=== PATIENT | male | born 1990 | race Caucasian/White ===

== ENCOUNTER 2017-10-09 11:08 | Inpatient (IN) | payer SELFPAY ==
[2017-10-09] VITALS (11 sets, daily range): BP systolic 106–141; BP diastolic 50–73
[~2017-10-09] VITALS: Ht 180.3 cm; Wt 59.6 kg
--- NOTE | ~2017-10-09 | O ---
[place], [place] OPERATIVE NOTE NAME: [facility] #: [id number] UNIT #: [id number] ROOM: 415 DOCTOR: ALFRED ALTMAN MD BIRTHDATE: [birth year] DOS: 10/09/2017 PREOPERATIVE DIAGNOSIS: Presumed acute appendicitis. POSTOPERATIVE DIAGNOSIS: Suspected inflammatory bowel disease. PROCEDURE: Diagnosed laparoscopic, exploratory laparotomy, ileocecectomy. SURGEON: Alfred Altman MD DIESEL TECHNICIAN: CORA. ANESTHESIA: General with endotracheal intubation. INDICATIONS: This is a 27-year-old gentleman who was admitted with right lower quadrant abdominal pain and a CAT scan that showed presumed perforated appendicitis. The patient was taken to the operating room for the above-mentioned procedure. The procedure and its complications were explained to the patient in detail preoperatively. Complications that were discussed included but were not limited to bleeding, infection, prolonged postoperative pain, damage to underlying vital structures, inadvertent injury to the surrounding vital structures, incisional hernia formation and he agreed to proceed. DESCRIPTION OF PROCEDURE: After identifying the patient, the patient was brought to the operating suite and laid in the supine position. After induction of general anesthesia, the parts were painted and draped in the usual sterile fashion and prior to this a Kelly catheter was inserted into the urinary bladder. A timeout procedure was called in the usual fashion. A subumbilical incision in the transverse fashion was made. The skin and the subcutaneous tissue were incised in the line of the incision. The fascia was incised vertically and 2 stay sutures were taken with the help of 0 Vicryl. A pneumoperitoneum was created after 12 mm Edna port was introduced into the peritoneal cavity. Under direct vision, a left lower quadrant incision of 10 mm and a suprapubic incision of 5 mm was made and appropriate size ports were introduced. The patient was placed in a Trendelenburg, right side up position and the cecum was identified. Posterior to the cecum, in the retrocecal position, there was found to be some severe inflammation, but the appendix could not be adequately visualized despite multiple attempts to manipulate the cecum laparoscopically. Therefore, a decision was now made to proceed with an exploratory laparotomy. The ports were removed and the pneumoperitoneum was decompressed. The umbilical and the suprapubic ports were connected together with the help of a knife and the fascia as well as the subcutaneous tissue was opened with the help of electrocautery. A self-retaining [place] retractor was placed. The cecum was again found to be extremely inflamed and also had significant amount of fleshy lymphadenopathy in the ileocecal region. A decision was made to proceed with ileocecectomy. A spot was identified in the distal ileum approximately 6 inches away from the ileocecal junction and this area was stapled with the help of linear stapler. Similarly, after adequate dissection of the cecum away from the retroperitoneum structures, similar [place], [place] OPERATIVE NOTE NAME: [facility] UNIT #: [id number] ROOM: [facility] DOCTOR: RAMON NORRIS,ALFRED BIRTHDATE: [birth year] stapling was performed of the region of the proximal cecum. With the help of the LigaSure device, the mesentery of the ileocecal region to be removed was incised. The vasculature was then ligated with the help of 0 Vicryl and the specimen was then sent for histopathological diagnosis. Hemostasis was achieved and thereafter with the help of linear and TA stapler, a stapled anastomosis between the terminal ileum and the cecum was performed. The stapled end was then reinforced with the help of 3-0 silk in an interrupted fashion. A stitch was also taken in the ____ with the help of 3-0 silk. The mesentery of the ileocecal region was then approximated with the help of 3-0 Vicryl in a running fashion. Copious amounts of saline was used for irrigation and after all the irrigation fluid was sucked away, hemostasis was confirmed again. At this point, the fascial defect was approximated with the help of looped PDS in a running fashion. The skin edges were infiltrated with local anesthesia (1% plain lidocaine) and approximated with the help of pepper. The left lower quadrant incision also was approximated with the help of pepper after local anesthesia was infiltrated. A dressing was placed. The patient was extubated uneventfully and brought back to the recovery room in stable fashion. There were no complications. Dr. Alfred Altman, the attending surgeon, was present throughout the operating case. Alfred Altman MD CM:OPRECORD:OPERATIVE NOTE [id number] ALFRED ALTMAN MD 10/09/[id number] interface
[~2017-10-09 11:08] MED LIST: CLARITIN10 MG PO; NKHM; ZITHROMAX Z PA250 MG PO; ZOFRAN ODT4 MG SL
[2017-10-09 11:51] LABS: BASO % 0.1 % (0.0-1.0); EOS % 0.1 % (1.0-4.0); HEMATOCRIT 36.5 % (42.0-52.0); HEMOGLOBIN 12.7 g/dl (14.0-18.0); LYMPH # 1.2 10*3/uL (1.3-4.4); LYMPH % 8.7 % (27.0-41.0); MEAN CELL VOLUME 89.5 fl (80.0-94.0); MEAN CORPUSCULAR HGB 31.1 pg (27.0-31.0); MEAN CORPUSCULAR HGB CONC 34.8 g/dl (33.0-37.0); MEAN PLATELET VOLUME 11.5 fl (9.6-12.3); MONO # 0.8 10*3/uL (0.1-1.0); MONO % 6.2 % (3.0-9.0); NEUT # 11.2 10*3/uL (2.3-7.9); NEUT % 84.5 % (47.0-73.0); PLATELET COUNT AUTOMATED 174 10*3/uL (130-400); RED BLOOD COUNT 4.08 10*6/uL (4.50-5.90); WHITE BLOOD COUNT 13.3 10*3/uL (4.8-10.8)
[2017-10-09 12:08] LABS: ALBUMIN 3.7 gm/dl (3.1-4.5); BUN 9 mg/dl (7-24); CHLORIDE 102 mmol/L (98-107); CREATININE 0.99 mg/dL (0.70-1.30); LIPASE 118 U/L (73-393); POTASSIUM 3.3 mmol/L (3.5-5.1); SGOT/AST 15 IU/L (3-35); SGPT/ALT 18 U/L (12-78); SODIUM 138 mmol/L (136-145); TOTAL PROTEIN 7.2 gm/dL (6.4-8.2)
[2017-10-09 12:09] LABS: ALKALINE PHOSPHATASE 77 U/L (45-117)
--- NOTE | 2017-10-09 12:27 | NUR ---
PT HAS BEEN ASKED SEVERAL TIMES BUT REMAINS UNABLE TO PROVIDE URINE SPECIMEN DESPITE ONGOING 1/2NSS INFUSING.
--- NOTE | 2017-10-09 12:30 | NUR ---
PAIN MUCH RELIEVED WITH TORADOL DOSING. SALINE HAS INFUSED. TAKEN TO CT NOW
[2017-10-09 12:53] LABS: BILIRUBIN NEGATIVE (NEGATIVE); BLOOD NEGATIVE (NEGATIVE); CLARITY SL CLOUDY (CLEAR); COLOR YELLOW (YELLOW); GLUCOSE NEGATIVE (NEGATIVE); KETONE TRACE (NEGATIVE); LEUKO ESTERASE NEGATIVE (NEGATIVE); NITRITE NEGATIVE (NEGATIVE); SPECIFIC GRAVITY 1.025 (1.005-1.030); UROBILINOGEN 0.2 E.U./dl (0.2-1.0)
[2017-10-09 13:06] LABS: BACTERIA TRACE; MUCOUS 2+
--- NOTE | 2017-10-09 14:00 | NUR ---
Time: 1399 A 27 year old MALE admitted to under services of AMARILIS RIVERA DO. Pt. arrived via bed from ER. Chief complaint: ABDOMINAL PAIN. AUSTIN HART
--- NOTE | 2017-10-09 14:10 | NUR ---
EDUARDO VALENZUELA STATED SHE SPOKE WITH DR NAVARRO ALREADY REGARDING CONSULT.
--- NOTE | 2017-10-09 14:37 | NUR ---
PT LEFT FLOOR FOR SURGERY AT THIS TIME.
[2017-10-09] MEDS ORDERED: OMEPRAZOLE20 M2 PO (14:44)
--- NOTE | 2017-10-09 15:30 | NUR ---
PT REQUESTS FLU AND PNEUMONIA VACCINES. PER EDUARDO WE MAY GIVE WHEN HE RETURNS FROM SURGERY.
--- NOTE | 2017-10-09 19:10 | NUR ---
PT RETURNED TO FLOOR AT THIS TIME. STABLE
--- NOTE | 2017-10-09 20:12 | NUR ---
PRN MORPHINE GIVEN FOR PT COMPLAINTS OF ABDOMINAL PAIN RATING IT AN 8/10. CALL LIGHT WITHIN REACH, WILL MONITOR
[2017-10-09 20:13] LABS: ACT PARTIAL THROMBO TIME 30.1 SECONDS (20.8-31.5); INTERNATIONAL NORM RATIO 1.1 (2.0-3.5)
--- NOTE | 2017-10-09 22:00 | NUR ---
PRN MEDICATION APPEARS EFFECTIVE, PT SLEEPING
[2017-10-10] VITALS: BP 116/68
--- NOTE | 2017-10-10 01:03 | NUR ---
PRN MORPHINE GIVEN FOR PT COMPLAINTS OF 7/10 ABDOMINAL PAIN. CALL LIGHT WITHIN REACH, WILL MONITOR
--- NOTE | 2017-10-10 02:00 | NUR ---
PRN MEDICATION APPEARS EFFECTIVE, PT SLEEPING
--- NOTE | 2017-10-10 02:13 | NUR ---
24 HR chart check completed.
--- NOTE | 2017-10-10 05:47 | NUR ---
PATIENT AMBULATED [place] IN THE HALLWAY. TOLERATED WELL. PATIENT NOW BACK IN BED
[2017-10-10 07:05] LABS: ALKALINE PHOSPHATASE 57 U/L (45-117); BUN 13 mg/dl (7-24); CHLORIDE 104 mmol/L (98-107); CREATININE 0.95 mg/dL (0.70-1.30); FREE T4 1.19 ng/dl (0.76-1.46); HDL CHOLESTEROL 39 mg/dl (40-60); PHOSPHOROUS 2.5 mg/dL (2.5-4.9); POTASSIUM 3.7 mmol/L (3.5-5.1); SGOT/AST 13 IU/L (3-35); SGPT/ALT 16 U/L (12-78); SODIUM 139 mmol/L (136-145); TOTAL PROTEIN 6.6 gm/dL (6.4-8.2); TRIGLYCERIDES 25 mg/dl (<150)
--- NOTE | 2017-10-10 07:25 | NUR ---
DR NAVARRO IN TO SEE PT. NO NEW ORDERS AT THIS TIME.
[2017-10-10 07:37] LABS: CHOLESTEROL < 50 mg/dL (<200)
[2017-10-10 08:00] VITALS: BP 124/72
--- NOTE | 2017-10-10 08:30 | NUR ---
Public Stenographer in to talk to patient. Patient states lives at home with his . There are a flight of steps in the home. Physician: Dr. Catherine Pharmacy: [facility] health services: none Patient's level of ADLs: INDEPENDENT Patient has working utilities: yes DME: none Follow-up physician's appointment after d/c: will be made by hospitalist nurse director upon discharge Does patient want to access PORTAL?: no Discharge plan discussed with patient. He lives at home with his . He is independent in his ADLs and ambulation. He denies any needs at this time. When medically stable he will be discharged to home. ASHLEY SALAZAR
[2017-10-10 08:33] LABS: VITAMIN D, 25-HYDROXY 10.8 ng/mL (30-100)
--- NOTE | 2017-10-10 08:50 | NUR ---
DR MUSTAFA IN TO SEE PT, NEW ORDERS RECEIVED.
--- NOTE | 2017-10-10 08:57 | NUR ---
PER DR MUSTAFA, PT DOES NOT NEED TO BE ON TELEMETRY.
--- NOTE | 2017-10-10 09:25 | NUR ---
MEDICATED IV SLOWLY ORDERED PER PT REQUEST WITH MORPHINE FOR C/O ABDOMINAL SURGICAL SITE PAIN. PT RATES PAIN 5/10. SEE EMAR. SHEETS CATHETER REMOVED PER ORDERS & INSTRUCTED PT ON NEED TO USE URINAL FOR ACCURATE OUPUT, PT VOICES UNDERSTANDING. MED REC CONFIRMED WITH PT.
--- NOTE | 2017-10-10 10:30 | NUR ---
MEDICATION EFFECTIVE PER PT, PT NOW RATES PAIN 2/10. WILL CONTINUE TO MONITOR. DISCUSSED TIME FRAME OF PRN MEDICATIONS. ENCOURAGED OOB, AMBULATION, TCDB & SPLINTING INCISION. PT VOICES UNDERSTANDING.
[2017-10-10 12:00] VITALS: BP 126/76
--- NOTE | 2017-10-10 15:26 | NUR ---
AMBULATORY IN HALLWAYS WITH THIS SHIFT.
[2017-10-10 16:00] VITALS: BP 143/84
--- NOTE | 2017-10-10 17:08 | NUR ---
MEDICATED IV SLOWLY ORDERD PER PT REQUEST WITH MORPHINE FOR C/O INCISIONAL PAIN. PT RATES PAIN 9/10. SEE EMAR. ABD SOFT WITH DISTANT BOWEL SOUNDS AUSCULTATED, PT ADMITS TO "BURPING" ENCOURAGED OOB & TO INCREASE FLUID INTAKE. SEE SHIFT ASSESSMENT.
--- NOTE | 2017-10-10 19:18 | NUR ---
DR MUSTAFA IN [facility] THIS SHIFT & INFORMED THAT PT HAD ONLY VOIDED 50 ML THIS SHIFT. PT HAS BEEN BLADDER SCANNED FOR 58 ML. PT HAS BEEN ENCOURAGED TO INCREASE PO INTAKE & AMBULATION. NO DISTENTION NOTED. NO DISCOMFORT TO PALPATION.
[2017-10-10 20:00] VITALS: BP 131/73
--- NOTE | 2017-10-10 21:09 | NUR ---
PRN MEDICATION GIVEN FOR PT COMPLAINTS OF ABDOMINAL PAIN RATING IT A7/10. CALL LIGHT WITHIN REACH, WILL MONITOR
--- NOTE | 2017-10-10 22:00 | NUR ---
PRN MEDICATION APPEARS EFFECTIVE, PT SLEEPING
[2017-10-11] VITALS: BP 133/76
--- NOTE | 2017-10-11 01:14 | NUR ---
PRN MORPHINE GIVEN FOR PT COMPLAINTS OF ABDOMINAL PAIN RATING IT 6/10. PATIENT ALSO UP TO VOID INTO URINAL FOR 300ML. CALL LIGHT WITHIN REACH, WILL MONITOR
--- NOTE | 2017-10-11 02:00 | NUR ---
PT STATES PAIN MEDICATION EFFECTIVE AT THIS TIME
--- NOTE | 2017-10-11 05:06 | NUR ---
PRN MORPHINE GIVEN FOR PT COMPLAINTS OF ABDOMINAL PAIN RATING IT A 6/10. CALL LIGHT WITHINREACH, WILL MONITOR
--- NOTE | 2017-10-11 06:21 | NUR ---
PRN MEDICATION EFFECTIVE PER PT
[2017-10-11 06:44] LABS: BASO % 0.1 % (0.0-1.0); HEMATOCRIT 32.2 % (42.0-52.0); HEMOGLOBIN 11.1 g/dl (14.0-18.0); LYMPH % 8.8 % (27.0-41.0); MEAN CELL VOLUME 89.2 fl (80.0-94.0); MEAN CORPUSCULAR HGB 30.7 pg (27.0-31.0); MEAN CORPUSCULAR HGB CONC 34.5 g/dl (33.0-37.0); MEAN PLATELET VOLUME 11.7 fl (9.6-12.3); MONO # 0.8 10*3/uL (0.1-1.0); MONO % 7.1 % (3.0-9.0); NEUT # 9.7 10*3/uL (2.3-7.9); NEUT % 83.1 % (47.0-73.0); PLATELET COUNT AUTOMATED 168 10*3/uL (130-400); RED BLOOD COUNT 3.61 10*6/uL (4.50-5.90); RED CELL DISTRI WIDTH 12.1 % (0-14.5); WHITE BLOOD COUNT 11.7 10*3/uL (4.8-10.8)
[2017-10-11 06:58] LABS: ALBUMIN 2.8 gm/dl (3.1-4.5); ALKALINE PHOSPHATASE 58 U/L (45-117); BUN 14 mg/dl (7-24); CHLORIDE 100 mmol/L (98-107); CREATININE 0.78 mg/dL (0.70-1.30); SGOT/AST 17 IU/L (3-35); SGPT/ALT 13 U/L (12-78); SODIUM 134 mmol/L (136-145); TOTAL PROTEIN 6.5 gm/dL (6.4-8.2)
--- NOTE | 2017-10-11 07:45 | NUR ---
RESTING COMFORTABLY, PT STATES "PAIN MEDICATION SEEMS TO BE HOLDING ME LONGER" REVIEWED INCREASING PO FLUIDS WELL AMBULATION, TCDB. SEE SHIFT ASSESSMENT.
--- NOTE | 2017-10-11 07:50 | NUR ---
DR MUSTAFA IN TO SEE PT.
[2017-10-11 08:00] VITALS: BP 119/70
--- NOTE | 2017-10-11 08:30 | NUR ---
All Terrain Vehicle Technician in to see patient. He denies any home needs at this time. He states he has family to help him at home. When medically stable he will be discharged to home.
--- NOTE | 2017-10-11 08:45 | NUR ---
AMBULATORY IN HALLS, TOLERATING WELL.
--- NOTE | 2017-10-11 09:40 | NUR ---
MEDICATED IV SLOWLY ORDERED PER PT REQUEST WITH MORPHINE FOR C/O ABDOMINAL PAIN FROM SURGICAL AREA. PT RATES PAIN 06/06. HAS BEEN AMBULATING IN HALLWAYS. DR NAVARRO IN TO SEE PT & REMOVED ABD DRSNG. 38 JENNIFER INTACT WITH NO DRAINAGE NOTED. INCISION WELL APPROXIMATED. WILL CONTINUE TO MONITOR.
--- NOTE | 2017-10-11 10:30 | NUR ---
MEDICATION EFFECTIVE PER PT IN RELIEVING DISCOMFORT. NOW RATES PAIN AT 2/3 OUT OF 10.
[2017-10-11 12:00] VITALS: BP 122/69
--- NOTE | 2017-10-11 12:38 | NUR ---
AMBULATORY IN HALLS WITH . TOLERATING WELL.
--- NOTE | 2017-10-11 13:23 | NUR ---
MEDICATED IV SLOWLY ORDERED PER PT REQUEST WITH MORPHINE FOR C/O ABDOMINAL SURGICAL SITE PAIN. PT RATES PAIN 06/06. SEE EMAR. FAMILY AT BEDSIDE.
--- NOTE | 2017-10-11 14:45 | NUR ---
PT STATES MEDICATION EFFECTIVE IN RELIEVING DISCOMFORT.
[2017-10-11 16:00] VITALS: BP 126/75
--- NOTE | 2017-10-11 17:56 | NUR ---
MEDICATED IV SLOWLY ORDERED PER PT REQUEST WITH MORPHINE FOR C/O ABD PAIN AT SURGICAL SITE. PT RATES PAIN 04/06. HAS BEEN AMBULATORY IN HALLS MULTIPLE TIMES THIS SHIFT.
[2017-10-11 20:00] VITALS: BP 132/80
--- NOTE | 2017-10-11 21:27 | NUR ---
PRN MORPHINE GIVEN FOR PT COMPLAINTS OF ABDOMINAL PAIN RATING IT A 6/10. CALL LIGHT WITHIN REACH, WILL MONITOR
[2017-10-12] VITALS: BP 126/79
[2017-10-12 06:20] LABS: BASO % 0.1 % (0.0-1.0); EOS % 0.2 % (1.0-4.0); HEMATOCRIT 34.5 % (42.0-52.0); HEMOGLOBIN 11.9 g/dl (14.0-18.0); LYMPH # 0.9 10*3/uL (1.3-4.4); LYMPH % 6.8 % (27.0-41.0); MEAN CELL VOLUME 89.4 fl (80.0-94.0); MEAN CORPUSCULAR HGB 30.8 pg (27.0-31.0); MEAN CORPUSCULAR HGB CONC 34.5 g/dl (33.0-37.0); MEAN PLATELET VOLUME 11.4 fl (9.6-12.3); MONO % 7.6 % (3.0-9.0); NEUT # 10.6 10*3/uL (2.3-7.9); NEUT % 84.3 % (47.0-73.0); PLATELET COUNT AUTOMATED 228 10*3/uL (130-400); RED BLOOD COUNT 3.86 10*6/uL (4.50-5.90); RED CELL DISTRI WIDTH 11.9 % (0-14.5); WHITE BLOOD COUNT 12.6 10*3/uL (4.8-10.8)
[2017-10-12 06:43] LABS: ALBUMIN 2.7 gm/dl (3.1-4.5); BUN 13 mg/dl (7-24); CHLORIDE 97 mmol/L (98-107); CREATININE 0.77 mg/dL (0.70-1.30); POTASSIUM 3.5 mmol/L (3.5-5.1); SGOT/AST 23 IU/L (3-35); SGPT/ALT 15 U/L (12-78); SODIUM 133 mmol/L (136-145); TOTAL PROTEIN 6.8 gm/dL (6.4-8.2)
[2017-10-12 06:44] LABS: ALKALINE PHOSPHATASE 64 U/L (45-117)
[2017-10-12 08:00] VITALS: BP 120/74
--- NOTE | 2017-10-12 09:25 | NUR ---
PT MEDICATED AT THIS TIME WITH PRN NORCO FOR C/O ABDOMINAL PAIN AT SURGICAL INCISION SITE. PT RATES PAIN 4/10. WILL REACCESS.
[2017-10-12 12:00] VITALS: BP 122/67
--- NOTE | 2017-10-12 14:55 | NUR ---
PT MEDICATED WITH PRN NORCO FOR C/O ABDOMINAL PAIN AT INCISION SITE. PT RATES PAIN 04/06. WILL REACCESS.
[2017-10-12 16:00] VITALS: BP 128/82
--- NOTE | 2017-10-12 16:00 | NUR ---
PRN NORCO EFFECTIVE PER PT.
--- NOTE | 2017-10-12 18:00 | NUR ---
PT UP AMBULATING IN CHAMBERS.
--- NOTE | 2017-10-12 18:41 | NUR ---
PT MEDICATED AT THIS TIME WITH PRN NORCO FOR C/O ABDMINAL PAIN AT INCISION SITE. PT RATES PAIN 05/06. WILL REACCESS.
[2017-10-12 20:00] VITALS: BP 128/76
--- NOTE | 2017-10-12 21:30 | NUR ---
PT GIVEN PRN NORCO FOR PAIN. WILL CONTINUE TO MONITOR
--- NOTE | 2017-10-12 22:28 | NUR ---
CALLED ON RECENT EPISODE OF N/V FOR PT. PT ASSESSED, TEMP WNL, AND N/V DECREASED. REQUESTED IF N/V PERSISTED, PHENERGAN CAN BE ORDERED Q4H.
--- NOTE | 2017-10-12 22:30 | NUR ---
PT GIVEN ZOFRAN FOR N/V. N/V VOMITING DECREASED. WILL CONTINUE TO MONITOR PT.
[2017-10-13] VITALS: BP 128/74
--- NOTE | 2017-10-13 | NUR ---
PAIN MED EFFECTIVE. PT SLEEPING. WILL CONTINUE TO MONITOR
[2017-10-13 05:53] LABS: ALBUMIN 2.4 gm/dl (3.1-4.5); ALKALINE PHOSPHATASE 69 U/L (45-117); BUN 18 mg/dl (7-24); CHLORIDE 98 mmol/L (98-107); CREATININE 0.69 mg/dL (0.70-1.30); POTASSIUM 3.7 mmol/L (3.5-5.1); SGOT/AST 37 IU/L (3-35); SGPT/ALT 36 U/L (12-78); SODIUM 136 mmol/L (136-145); TOTAL PROTEIN 6.5 gm/dL (6.4-8.2)
--- NOTE | 2017-10-13 06:00 | NUR ---
PT GIVEN PRN NORCO FOR PAIN. WILL CONTINUE TO MONITOR PT.
[2017-10-13 06:07] LABS: BASO % 0.1 % (0.0-1.0); EOS # 0.1 10*3/uL (0.0-0.4); EOS % 0.6 % (1.0-4.0); HEMATOCRIT 35.1 % (42.0-52.0); HEMOGLOBIN 12.1 g/dl (14.0-18.0); LYMPH # 1.3 10*3/uL (1.3-4.4); LYMPH % 9.1 % (27.0-41.0); MEAN CELL VOLUME 89.1 fl (80.0-94.0); MEAN CORPUSCULAR HGB 30.7 pg (27.0-31.0); MEAN CORPUSCULAR HGB CONC 34.5 g/dl (33.0-37.0); MEAN PLATELET VOLUME 11.1 fl (9.6-12.3); MONO # 1.2 10*3/uL (0.1-1.0); MONO % 8.1 % (3.0-9.0); NEUT # 11.8 10*3/uL (2.3-7.9); NEUT % 81.6 % (47.0-73.0); PLATELET COUNT AUTOMATED 274 10*3/uL (130-400); RED BLOOD COUNT 3.94 10*6/uL (4.50-5.90); WHITE BLOOD COUNT 14.4 10*3/uL (4.8-10.8)
--- NOTE | 2017-10-13 06:10 | NUR ---
PT ASSESSED. PT STATED HE IS FEELING MUCH BETTER AND GOT THE BEST OF SLEEP SO FAR HERE. PAIN HAS DECREASED SIGNIFICANTLY PER PT. WILL CONTINUE TO MONITOR PT.
[2017-10-13 08:00] VITALS: BP 118/68
[2017-10-13 12:00] VITALS: BP 124/68
[2017-10-13] MEDS ORDERED: NORCO 5/325 PO (13:12)
--- NOTE | 2017-10-13 14:16 | NUR ---
Discharge instructions reviewed with patient/family. Patient receptive and verbalizes understanding. Follow-up care arranged. Written instructions given to patient/family. SHAHZAD JORDAN
== END 2017-10-13 14:16 | disposition home or self-care (01) | DRG 330 ==
LOC: ED 11:08 → 4E 13:34 → EDHOLD 13:34 → 4E 13:55
PROVIDERS: Family Medicine; Internal Medicine; Physician Assistant; Registered Nurse; Student in an Organized Health Care Education/Training Program; Surgery; ADMIT Internal Medicine
PROC: 0DBB0ZZ Excision of Ileum, Open Approach (ICD-10-PCS; principal; 2017-10-09)
PROC: 0DBH0ZZ Excision of Cecum, Open Approach (ICD-10-PCS; principal; 2017-10-09)
DX: K35.3 Acute appendicitis with localized peritonitis (principal); E44.0 Moderate protein-calorie malnutrition; Z68.1 Body mass index [BMI] 19.9 or less, adult; R55 Syncope and collapse; E87.6 Hypokalemia; R73.9 Hyperglycemia, unspecified; E55.9 Vitamin D deficiency, unspecified; E53.8 Deficiency of other specified B group vitamins; Z82.0 Family history of epilepsy and other diseases of the nervous system; Z79.899 Other long term (current) drug therapy; Z72.0 Tobacco use; Z71.6 Tobacco abuse counseling